=== PATIENT | male | born 1965 | race Caucasian/White ===

== ENCOUNTER 2018-05-12 15:31 | Emergency (ER) | payer BC ==
[~2018-05-12] VITALS: Ht 188 cm; Wt 99.8 kg
[2018-05-12] MEDS ORDERED: CEFADROXIL500 MG PO (18:11)
== END 2018-05-12 18:16 | disposition home or self-care (01) ==
LOC: ER 15:31
DX: H60.12 Cellulitis of left external ear (principal)

== ENCOUNTER 2021-07-16 08:21 | Outpatient (CLI) | payer OTHER ==
[~2021-07-16 08:21] MED LIST: CEFADROXIL500 MG PO
== END 2021-07-16 09:00 | disposition home or self-care (01) ==
LOC: TOM 08:21
PROVIDERS: ATTEND Family Medicine
DX: R10.11 Right upper quadrant pain (principal)